=== PATIENT | male | born 1995 | race Caucasian/White ===

== ENCOUNTER 2019-05-08 03:14 | Emergency (ER) | payer OTHER ==
[~2019-05-08] VITALS: Ht 180.3 cm; Wt 72.6 kg
[2019-05-08] MEDS ORDERED: DIPHENHYDRAMINE50 M1 PO (03:28)
[2019-05-08] MEDS ORDERED: DEPAKOTE ER500 MG PO (03:29)
== END 2019-05-08 04:00 | disposition home or self-care (01) ==
LOC: ED 03:14
DX: T71.162A Asphyxiation due to hanging, intentional self-harm, initial encounter (principal); S10.93XA Contusion of unspecified part of neck, initial encounter; Z87.891 Personal history of nicotine dependence; Z79.899 Other long term (current) drug therapy; X58.XXXA Exposure to other specified factors, initial encounter
CPT/HCPCS: 99284

== ENCOUNTER 2020-01-03 22:05 | Emergency (ER) | payer OTHER ==
[~2020-01-03] VITALS: Ht 180.3 cm; Wt 72.6 kg
[~2020-01-03 22:05] MED LIST: DEPAKOTE ER500 MG PO; DIPHENHYDRAMINE50 M1 PO
[2020-01-03] MEDS ORDERED: FLUVOXAMINE MAL50 MG PO (22:20)
== END 2020-01-04 01:52 | disposition home or self-care (01) ==
LOC: ED 22:05
DX: R10.31 Right lower quadrant pain (principal); Z87.891 Personal history of nicotine dependence
CPT/HCPCS: 51701; 74177; 80053; 81001; 83690; 85025; 99284-25; J7030; Q9967

== ENCOUNTER 2020-03-05 23:13 | Emergency (ER) | payer OTHER ==
[~2020-03-05] VITALS: Ht 180.3 cm; Wt 72.6 kg
[~2020-03-05 23:13] MED LIST changes: +FLUVOXAMINE MAL50 MG PO
== END 2020-03-06 01:22 | disposition home or self-care (01) ==
LOC: ED 23:13
DX: T18.2XXA Foreign body in stomach, initial encounter (principal); Z87.891 Personal history of nicotine dependence
CPT/HCPCS: 74018; 96374; 99284-25; C9113

== ENCOUNTER 2020-03-27 20:42 | Emergency (ER) | payer OTHER ==
[~2020-03-27] VITALS: Ht 180.3 cm; Wt 72.6 kg
--- OUTSIDE RECORDS SUMMARY | 2020-03-27 20:44 | XMS ---
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 Donita has no Care Guidelines for this patient. Serena VISIT COUNT (12 MO.) [address] [facility] TOTAL 4 NOTE: Visits indicate total known visits. ED/C VISIT TRACKING (12 MO.) 03/27/2020 20:43 [facility] [place] TYPE: Emergency COMPLAINT: - FOREGIN BODY 03/05/2020 23:41 [facility] [place] TYPE: Emergency COMPLAINT: - ABD PAIN DIAGNOSES: - Foreign body in stomach, initial encounter - Personal history of nicotine dependence - Unspecified abdominal pain 01/03/2020 22:06 [facility] [place] TYPE: Emergency COMPLAINT: - ABD PAIN DIAGNOSES: - Right lower quadrant pain - Unspecified abdominal pain - Personal history of nicotine dependence 05/08/2019 03:15 [facility] [place] TYPE: Emergency COMPLAINT: - ATTEMPTED HANGING DIAGNOSES: - Exposure to other specified factors, initial encounter - Contusion of unspecified part of neck, initial encounter - Personal history of nicotine dependence - Asphyxiation due to hanging, intentional self-harm, initial e - 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
[2020-03-27] MEDS ORDERED: IMODIUM A-D2 M2 PO (21:11)
[2020-03-27] MEDS ORDERED: ZOFRAN4 MG PO (21:11)
[2020-03-27] MEDS ORDERED: MIRALAX17 GM PO (21:12)
[2020-03-27] MEDS ORDERED: TRIAMCIN-MOXI0.6 ML IO (21:13)
[2020-03-27] MEDS ORDERED: ARIPIPRAZOLE2 MG PO (21:13)
== END 2020-03-27 21:50 | disposition home or self-care (01) ==
LOC: ED 20:42
DX: T18.2XXA Foreign body in stomach, initial encounter (principal); Z79.899 Other long term (current) drug therapy
CPT/HCPCS: 71045; 99283-25

== ENCOUNTER 2020-04-05 02:49 | Emergency (ER) | payer OTHER ==
[~2020-04-05] VITALS: Ht 180.3 cm; Wt 72.6 kg
[~2020-04-05 02:49] MED LIST changes: +ARIPIPRAZOLE2 MG PO; +IMODIUM A-D2 M2 PO; +MIRALAX17 GM PO; +TRIAMCIN-MOXI0.6 ML IO; +ZOFRAN4 MG PO
--- OUTSIDE RECORDS SUMMARY | 2020-04-05 02:52 | XMS ---
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 Serena VISIT COUNT (12 MO.) 5 [facility] TOTAL 5 NOTE: Visits indicate total known visits. 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
== END 2020-04-05 05:47 | disposition home or self-care (01) ==
LOC: ED 02:49
DX: T71.162A Asphyxiation due to hanging, intentional self-harm, initial encounter (principal); F41.9 Anxiety disorder, unspecified; Z79.899 Other long term (current) drug therapy
CPT/HCPCS: 70450; 70498; 71045; 80053; 85025; 99285-25; Q9967

== ENCOUNTER 2020-04-27 18:27 | Emergency (ER) | payer OTHER ==
[~2020-04-27] VITALS: Ht 180.3 cm; Wt 72.6 kg
--- OUTSIDE RECORDS SUMMARY | 2020-04-27 18:30 | XMS ---
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 Serena VISIT COUNT (12 MO.) 6 [facility] TOTAL 6 NOTE: Visits indicate total known visits. ED/UCC VISIT TRACKING (12 MO.) 04/27/2020 18:28 [facility] TYPE: Emergency COMPLAINT: - VOMITING BLOOD 04/05/2020 02:49 [facility] TYPE: Emergency COMPLAINT: - ATTEMPTED SUICIDE DIAGNOSES: - Other long term care pharmacist (current) drug therapy - Asphyxiation due to hanging, intentional self-harm, initial e - Anxiety disorder, unspecified 03/27/2020 20:43 [facility] [place] TYPE: Emergency COMPLAINT: - FOREGIN BODY DIAGNOSES: - Other long term care pharmacist (current) drug therapy - Foreign body in [...] hanging, intentional self-harm, initial e - Other long term care pharmacist (current) drug therapy INPATIENT VISIT TRACKING (12 MO.) No inpatient visits to display in this time frame [email or web address]
[2020-04-27] MEDS ORDERED: HALOPERIDOL2 MG PO (18:46)
[2020-04-27] MEDS ORDERED: NASACORT10.8 ML NAS (18:47)
== END 2020-04-27 21:00 | disposition home or self-care (01) ==
LOC: ED 18:27
DX: T18.2XXA Foreign body in stomach, initial encounter (principal); F20.9 Schizophrenia, unspecified; Z79.899 Other long term (current) drug therapy
CPT/HCPCS: 71046; 80053; 83690; 85025; 96374; 99284-25; J2405